=== PATIENT | male | born 1975 | race Caucasian/White ===

== ENCOUNTER 2021-09-01 10:35 | Emergency (ER) | payer OTHER ==
[~2021-09-01 10:35] MED LIST: CELEXA20 MG PO; HCTZ25 MG PO; IRBESARTAN300 MG PO; PERCOCET 7.5/321 TAB PO; PRAVACHOL20 MG PO; PRILOSEC20 MG PO; SYNTHROID50 MCG PO
[2021-09-01] MEDS ORDERED: NAPROXEN500 MG PO (14:34)
== END 2021-09-01 14:49 | disposition home or self-care (01) ==
LOC: FER 10:35
DX: S33.5XXA Sprain of ligaments of lumbar spine, initial encounter (principal); I10 Essential (primary) hypertension; Z88.0 Allergy status to penicillin; Z88.8 Allergy status to other drugs, medicaments and biological substances; Z79.899 Other long term (current) drug therapy; V89.2XXA Person injured in unspecified motor-vehicle accident, traffic, initial encounter; Z28.311 Partially vaccinated for COVID-19
CPT/HCPCS: 72128; 72131; 73030; J1885